=== PATIENT | female | born 1985 | race Caucasian/White ===

== ENCOUNTER 2018-11-03 09:20 | Emergency (ER) | payer OTHER ==
[2018-11-03 09:37] VITALS: BP 110/67; PULSE 80; TEMP 98; BMI 32.1
--- NOTE | 2018-11-03 10:23 | PDOC ---
History of Present Illness - General Chief Complaint: Allergic Reaction Stated Complaint: Hives Time Seen by Provider: 11/03/18 10:07 History Source: Patient Exam Limitations: No Limitations - History of Present Illness Initial Comments: 11/03/18 10:19 33 year old female with no significant medical or surgical history present with complaints of itching face and rash after having iv contrast during cat scan this am. Patient reports no respiratory involvement states rash has since disappeared but still with some facial itching. Timing/Duration: 1 hour Severity: mild Modifying Factors: improves with: other (no intervention so far) Associated Symptoms: reports: denies symptoms Aspirin Received prior to arrival: Yes: no aspirin today Asa Contraindications(Core Measure): No: Allergy Beta Nasim Contraindications(Core Measure): Yes: Not Prescribed Past History - Travel Traveled outside of the country in the last 30 days: No - Past Medical History Allergies/Adverse Reactions: Allergies Allergy/AdvReac Type Severity Reaction Status Date / Time Penicillins Allergy Unknown Verified 11/03/18 09:38 iv contrast Allergy Mild Hives Uncoded 11/03/18 09:38 Home Medications: Ambulatory Orders Diphenhydramine HCl [Benadryl -] 25 mg PO Q8H #21 capsule 11/03/18 COPD: No - Immunization History Immunization Up to Date: Yes - Suicide/Smoking/Psychosocial Hx Smoking History: Never smoked Review of Systems - Review of Systems Able to Perform ROS?: Yes Is the patient limited [place] proficient: No Constitutional: No: Chills, Fever, Weakness HEENTM: Yes: Other (itching face and rash). No: Eye Pain, Blurred Vision, Ear Pain, Nose Congestion, Throat Pain Respiratory: No: Cough, Orthopnea, Wheezing Cardiac (ROS): No: Chest Pain, Palpitations ABD/GI: No: Blood Streaked Bowels, Constipated, Diarrhea, Abdominal cramping : No: Burning Musculoskeletal: No: Gout, Joint Pain Integumentary: No: Bruising, Erythema, Sweating Neurological: No: Headache, Numbness *Physical Exam - Vital Signs Last Vital Signs Temp Pulse Resp BP Pulse Ox 98.0 F 80 18 110/67 100 11/03/18 09:34 11/03/18 09:34 11/03/18 09:34 11/03/18 09:34 11/03/18 09:34 - Physical Exam General Appearance: Yes: Nourished, Appropriately Dressed. No: Apparent Distress HEENT: positive: TEOFILO, Pharynx Normal, Other (no swelling of face, no rash noted , pharynx is clear with no swelling ). negative: Pharyngeal Erythema, Tonsillar Exudate, Rhinorrhea, Sinus Tenderness Neck: positive: Supple. negative: Lymphadenopathy (R), Lymphadenopathy (L) Respiratory/Chest: positive: Lungs Clear, Normal Breath Sounds Cardiovascular: positive: Regular Rate, S1, S2 Integumentary: positive: Normal Color. negative: Hives, Rash, Swelling Neurologic: positive: Fully Oriented, Alert Moderate Sedation - Procedure Monitoring Vital Signs: Procedure Monitoring Vital Signs Temperature 98.0 F 11/03/18 09:34 Pulse Rate 80 11/03/18 09:34 Respiratory Rate 18 11/03/18 09:34 Blood Pressure 110/67 11/03/18 09:34 O2 Sat by Pulse Oximetry (%) 100 11/03/18 09:34 Medical Decision Making - Medical Decision Making 11/03/18 10:23 33 year old female with no significant medical or surgical history present with complaints of itching face and rash after having iv contrast during cat scan this am. Plan benadryl observe 11/03/18 19:55 patient given 1 liter bolus observed, no s/s of rash returning and no respiratory involvement d/c with rx for benadryl *DC/Admit/Observation/Transfer Diagnosis at time of Disposition: Allergic reaction to contrast dye Qualifiers: Encounter type: initial encounter Qualified Code(s): T50.8X5A - Adverse effect of diagnostic agents, initial encounter - Discharge Dispostion Disposition: HOME Condition at time of disposition: Good Decision to Admit order: No - Prescriptions Prescriptions: Diphenhydramine HCl [Benadryl -] 25 mg PO Q8H #21 capsule - Referrals - Patient Instructions Printed Discharge Instructions: DI for Adverse Drug Reaction -- Allergic Additional Instructions: Please continue to drink plenty fluids Please return to emergency room for shortness of breath, swelling of throat Call primary physician for follow up appointment - Post Discharge Activity Forms/Work/School Notes: Back to Work
[2018-11-03] MEDS ORDERED: SODIUM CHLORIDE 0.9% 500 ML INFUS.BAG IV ONE (10:51)
== END 2018-11-03 11:42 | disposition home or self-care (01) ==
LOC: JERFT 09:20
PROC: 3E033GC Introduction of Other Therapeutic Substance into Peripheral Vein, Percutaneous Approach (ICD-10-PCS; principal; 2018-11-03)
DX: L50.0 Allergic urticaria (principal); T50.8X5A Adverse effect of diagnostic agents, initial encounter
CPT/HCPCS: 99281-25